=== PATIENT | male | born 2000 | race Caucasian/White ===

== ENCOUNTER 2024-09-22 04:41 | Observation (INO) ==
--- NOTE | 2024-09-22 05:20 | DR.BITE ---
HPI Time Seen Time Seen by Provider: 09/22/24 05:15 PCP Primary Care Physician: Jolene Mancia HPI Comment HPI Comment: History as below. Complaint/Symptoms Chief Complaint Doctor Comments: Patient is 24yr old female in ER with insect bite to left hand times 2 days. Patient tried to lace it at home and redness swelling got worse. Patient denies fever. Chief Complaint:: Pt states" a spider bit him on the left hand two days ago and he tried to lancet it at home and it became red and swollen. " Self Treatment fo Chief Complaint: IBU and Aspirin COVID-19 Coronavirus risk:travel/contact w/high risk person: No Has patient experienced Coronavirus symptoms: No Nurses notes reviewed Nurses Notes Review: Yes Source History Provided: Patient Mode of Arrival Mode of Arrival: Ambulatory Timing Onset of Chief Complaint: 09/20/24 PMH PMH Past Medical History: Yes Past Medical History Comment: ADD Past Surgical History: No Family History History of Family Medical Conditions: Yes Family Medical History: Diabetes Mellitus and Cancer Social History Type of Tobacco Use: Vape Alcohol Use: Occasionally Travel Risk Coronavirus risk:travel/contact w/high risk person: No Has patient experienced Coronavirus symptoms: No Infectious screening In the last 2 months have you had wt loss of >10#?: NO Have you had fever, night sweats or hemotysis?: No Have you traveled outside the country in the last 6 months?: No Isolation: Standard ROS Review of Systems Constitutional: No Symptoms Reported Eyes: No Symptoms Reported ENTM: No Symptoms Reported Respiratoy: No Symptoms Reported Cardiovascular: No Symptoms Reported Gastrointestinal/Abdominal: No Symptoms Reported Genitourinary: No Symptoms Reported Neurological: No Symptoms Reported Musculoskeletal: No Symptoms Reported Integumentary: No Symptoms Reported Hematologic/Lymphatic: No Symptoms Reported Endocrine: No Symptoms Reported Psychiatric: No Symptoms Reported All Other Systems: Reviewed and Negative PE Vital Signs Vital Signs: Temp Pulse Resp BP Pulse Ox 09/22/24 06:02 21 09/22/24 05:32 21 09/22/24 04:51 98.3 F 109 H 18 147/87 99 Constitutional Limitations: No Limitations General Appearance: Alert and In No Apparent Distress Head Head Exam: Normal Inspection Eyes Eye exam: Normal Appearance, PERRL and EOMI; negative Scleral Icterus or Conjunctival Injection ENT ENT Exam: Normal Exam, Normal Oropharynx, Normal External Ear Exam and TM's Normal Bilaterally Neck Neck Exam: Normal Inspection Chest Chest Inspection: Normal Inspection and Symmetric Chest Wall Rise Respiratory Respiratory Exam: Normal Lung Sounds Bilat; negative Accessory Muscle Use, Chest Wall Tenderness or Respiratory Distress Respiratory Exam: Bilateral: Clear to Auscultation Cardiovascular Cardiovascular Exam: Regular Rate, Normal Rhythm and Normal Heart Sounds; negative Systolic Murmur or Diastolic Murmur Abdominal Exam Abdominal Exam: Normal Inspection, Normal Bowel Sounds and Soft; negative Tenderness Extremities Extremities Exam: Edema ROR Labs Reviewed 09/22/24 05:34 09/22/24 05:34 Laboratory: WBC 13.2 X10^3/uL (3.6-10.0) H 09/22/24 05:34 RBC 5.61 X10^6/uL (4.7-6.0) 09/22/24 05:34 Hgb 16.2 g/dL (13.5-18.0) 09/22/24 05:34 Hct 47.6 % (42.0-54.0) 09/22/24 05:34 MCV 84.9 fL (80.0-100.0) 09/22/24 05:34 MCH 28.9 pg (27.0-34.0) 09/22/24 05:34 MCHC 34.0 g/dL (33.0-35.0) 09/22/24 05:34 RDW 12.8 % (11.6-16.5) 09/22/24 05:34 Plt Count 259 X10^3/uL (150.0-450.0) 09/22/24 05:34 MPV 8.5 fL (7.4-11.0) 09/22/24 05:34 Neut % (Auto) 73.4 % (42.0-75.0) 09/22/24 05:34 Lymph % (Auto) 17.7 % (21.0-51.0) L 09/22/24 05:34 [place] % (Auto) 7.6 % (0.0-13.0) 09/22/24 05:34 Eos % (Auto) 0.7 % (0.9-2.9) L 09/22/24 05:34 Baso % (Auto) 0.6 % (0.2-1.0) 09/22/24 05:34 Neut # (Auto) 9.7 x10^3/uL (2.2-4.8) H 09/22/24 05:34 Lymph # (Auto) 2.3 X10^3/uL (1.3-2.9) 09/22/24 05:34 [place] # (Auto) 1.0 x10^3/uL (0.3-0.8) H 09/22/24 05:34 Eos # (Auto) 0.1 x10^3/uL (0.0-0.2) 09/22/24 05:34 Baso # (Auto) 0.1 X10^3/uL (0.0-0.1) 09/22/24 05:34 Absolute Nucleated RBC 0.1 /100WBC 09/22/24 05:34 Sodium 140 mmol/L (136-145) 09/22/24 05:34 Corrected Sodium TNP 09/22/24 05:34 Potassium 3.5 mmol/L (3.5-5.1) 09/22/24 05:34 Chloride 104 mmol/L (98-107) 09/22/24 05:34 Carbon Dioxide 28.4 mmol/L (21-32) 09/22/24 05:34 BUN 10 mg/dL (7-18) 09/22/24 05:34 Creatinine 1.19 mg/dL (0.70-1.30) 09/22/24 05:34 Est GFR (MDRD) Af Amer > 60 (>60) 09/22/24 05:34 Est GFR (MDRD) Non-Af > 60 (>60) 09/22/24 05:34 Glucose 95 mg/dL (65-99) 09/22/24 05:34 Calcium 9.1 mg/dL (8.5-10.1) 09/22/24 05:34 Corrected Calcium TNP 09/22/24 05:34 Total Bilirubin 0.50 mg/dL (0.2-1.0) 09/22/24 05:34 AST 15 Units/L (15-37) 09/22/24 05:34 ALT 30 Units/L (12-78) 09/22/24 05:34 Alkaline Phosphatase 96 Units/L (46-116) 09/22/24 05:34 Total Protein 7.9 g/dL (6.4-8.2) 09/22/24 05:34 Albumin 3.9 g/dL (3.4-5.0) 09/22/24 05:34 Globulin 4.0 g/dL (2.5-4.5) 09/22/24 05:34 Albumin/Globulin Ratio 1.0 Ratio (1.1-2.1) L 09/22/24 05:34 Opioid Opioid Risk Tool Age (Tuan box if 16-45): Yes History of Preadolescent Sexual Abuse: No Total: 1 Total Score Risk Category: Low Risk Copyright: Rj HENSON predicting aberrant behaviors Discharge Plan Discharge Plan Patient Disposition: HOME, SELF-CARE Condition: Stable Prescriptions: No Action [facility] Concerns: Post Hospitalization: new medications and changes needed to prevent readmission or further decline. Pt educated and given instructions on all concerns. Plan of Treatment: Continue with present treatment and follow up plan. Pt is to keep follow up appointment as instructed and take medications as ordered. Orders to Discharge Patient Discharge Orders: Transfer (Routine); Ordered 09/22/24 Ordered By: CYNDEE BUTCHER Follow ups/Referrals Follow ups/Referrals: [facility],None [Primary Care Provider] - 3 days Instructions Stand Alone Forms: Post Hospital Follow Up Care
[2024-09-22] MEDS: TORADOL 60 MG VIAL IM ONE (05:32)
[2024-09-22 05:40] LABS: BASOPHILS # (AUTO) 0.1 X10^3/uL (0.0-0.1); BASOPHILS % (AUTO) 0.6 % (0.2-1.0); EOSINOPHILS # (AUTO) 0.1 x10^3/uL (0.0-0.2); EOSINOPHILS % (AUTO) 0.7 % (0.9-2.9); HEMATOCRIT 47.6 % (42.0-54.0); HEMOGLOBIN 16.2 g/dL (13.5-18.0); LYMPHOCYTES # (AUTO) 2.3 X10^3/uL (1.3-2.9); LYMPHOCYTES % (AUTO) 17.7 % (21.0-51.0); MEAN CORPUSCULAR HEMOGLOBIN 28.9 pg (27.0-34.0); MEAN CORPUSCULAR VOLUME 84.9 fL (80.0-100.0); MEAN PLATELET VOLUME 8.5 fL (7.4-11.0); MONOCYTES % (AUTO) 7.6 % (0.0-13.0); NEUTROPHILS # (AUTO) 9.7 x10^3/uL (2.2-4.8); NEUTROPHILS % (AUTO) 73.4 % (42.0-75.0); PLATELET COUNT 259 X10^3/uL (150.0-450.0); RED BLOOD COUNT 5.61 X10^6/uL (4.7-6.0); RED CELL DISTRIBUTION WIDTH 12.8 % (11.6-16.5); WHITE BLOOD COUNT 13.2 X10^3/uL (3.6-10.0)
[2024-09-22 05:55] LABS: ALANINE AMINOTRANSFERASE 30 Units/L (12-78); ALBUMIN 3.9 g/dL (3.4-5.0); ALKALINE PHOSPHATASE 96 Units/L (46-116); ASPARTATE AMINO TRANSFERASE 15 Units/L (15-37); BLOOD UREA NITROGEN 10 mg/dL (7-18); CALCIUM 9.1 mg/dL (8.5-10.1); CARBON DIOXIDE 28.4 mmol/L (21-32); CHLORIDE 104 mmol/L (98-107); CREATININE 1.19 mg/dL (0.70-1.30); GLUCOSE 95 mg/dL (65-99); POTASSIUM 3.5 mmol/L (3.5-5.1); SODIUM 140 mmol/L (136-145); TOTAL PROTEIN 7.9 g/dL (6.4-8.2); eGFR NON BLACK RACES > 60 (>60)
[2024-09-22] MEDS: VANCOMYCIN IV *PREMIX 1 G/200 ML BAG 1 G/200 ML PIGGYBACK IV ONE (07:08)
[2024-09-22] MEDS: NS 1,000 ML IV 1,000 ML IV SCH (07:08)
[2024-09-22] MEDS: TORADOL 60 MG VIAL ONE (09:24)
[2024-09-22 09:44] VITALS: BMI 26.5
[2024-09-22] MEDS: VANCOMYCIN IV *PREMIX 1 G/200 ML BAG 1 G/200 ML PIGGYBACK IV SCH (09:44)
--- NOTE | 2024-09-22 11:31 | DR.H&P ---
H&P History & Physical for Day of: H&P Date: 09/22/24 Chief Complaint Chief Complaint: right hand swelling, redness History of Present Illness History of Present Illness: Patient is a 24y/o male with no pertinent medical history presented with right hand pain, swelling and redness. He states he noticed a small pustule couple days ago which progressed with increased pain and swelling of the right hand. He tried to drain the pus but it got worse. He also noticed a similar wound on the left leg which he removed the pus and it seems to be healing. Denies any prior hx of skin infections. Denies any trauma or bite. ER work up showed elevated WBC. He was started on IV vancomycin, cultures were collected. Labs/imaging reviewed: -WBC 13.2 lactic acid 0.8 -Wound Cx pending -Blood Cx pending Plan: Will order CT of the right hand to assess further. Continue IV vancomycin, follow pending cultures. Continue wound care. Consult Dr Kulkarni. Replace electrolytes prn. Continue pain control. Monitor AM labs/imaging. Family History Family Medical History: Diabetes Mellitus Social History Does patient currently use any type of tobacco product: Yes Type of Tobacco Use: Vape How many years tobacco product used: 5 Alcohol Use: None Drug Use: None Medications Home Medications: Home Medications Medication Instructions Recorded Confirmed Type NK 09/22/24 09/22/24 History Allergies Allergies Allergy/AdvReac Type Severity Reaction Status Date / Time coconut Allergy Verified 09/22/24 05:32 Labs 09/22/24 05:34 09/22/24 05:34 Labs: 09/22/24 06:10 Hand - Left Wound Gram Stain - Final Laboratory WBC 13.2 X10^3/uL (3.6-10.0) H 09/22/24 05:34 RBC 5.61 X10^6/uL (4.7-6.0) 09/22/24 05:34 Hgb 16.2 g/dL (13.5-18.0) 09/22/24 05:34 Hct 47.6 % (42.0-54.0) 09/22/24 05:34 MCV 84.9 fL (80.0-100.0) 09/22/24 05:34 MCH 28.9 pg (27.0-34.0) 09/22/24 05:34 MCHC 34.0 g/dL (33.0-35.0) 09/22/24 05:34 RDW 12.8 % (11.6-16.5) 09/22/24 05:34 Plt Count 259 X10^3/uL (150.0-450.0) 09/22/24 05:34 MPV 8.5 fL (7.4-11.0) 09/22/24 05:34 Neut % (Auto) 73.4 % (42.0-75.0) 09/22/24 05:34 Lymph % (Auto) 17.7 % (21.0-51.0) L 09/22/24 05:34 [place] % (Auto) 7.6 % (0.0-13.0) 09/22/24 05:34 Eos % (Auto) 0.7 % (0.9-2.9) L 09/22/24 05:34 Baso % (Auto) 0.6 % (0.2-1.0) 09/22/24 05:34 Neut # (Auto) 9.7 x10^3/uL (2.2-4.8) H 09/22/24 05:34 Lymph # (Auto) 2.3 X10^3/uL (1.3-2.9) 09/22/24 05:34 [place] # (Auto) 1.0 x10^3/uL (0.3-0.8) H 09/22/24 05:34 Eos # (Auto) 0.1 x10^3/uL (0.0-0.2) 09/22/24 05:34 Baso # (Auto) 0.1 X10^3/uL (0.0-0.1) 09/22/24 05:34 Absolute Nucleated RBC 0.1 /100WBC 09/22/24 05:34 Sodium 140 mmol/L (136-145) 09/22/24 05:34 Corrected Sodium TNP 09/22/24 05:34 Potassium 3.5 mmol/L (3.5-5.1) 09/22/24 05:34 Chloride 104 mmol/L (98-107) 09/22/24 05:34 Carbon Dioxide 28.4 mmol/L (21-32) 09/22/24 05:34 BUN 10 mg/dL (7-18) 09/22/24 05:34 Creatinine 1.19 mg/dL (0.70-1.30) 09/22/24 05:34 Est GFR (MDRD) Af Amer > 60 (>60) 09/22/24 05:34 Est GFR (MDRD) Non-Af > 60 (>60) 09/22/24 05:34 Glucose 95 mg/dL (65-99) 09/22/24 05:34 Lactic Acid 0.8 mmol/L (0.4-2.0) 09/22/24 08:31 Calcium 9.1 mg/dL (8.5-10.1) 09/22/24 05:34 Corrected Calcium TNP 09/22/24 05:34 Total Bilirubin 0.50 mg/dL (0.2-1.0) 09/22/24 05:34 AST 15 Units/L (15-37) 09/22/24 05:34 ALT 30 Units/L (12-78) 09/22/24 05:34 Alkaline Phosphatase 96 Units/L (46-116) 09/22/24 05:34 Total Protein 7.9 g/dL (6.4-8.2) 09/22/24 05:34 Albumin 3.9 g/dL (3.4-5.0) 09/22/24 05:34 Globulin 4.0 g/dL (2.5-4.5) 09/22/24 05:34 Albumin/Globulin Ratio 1.0 Ratio (1.1-2.1) L 09/22/24 05:34 Review of Systems Constitutional: No Symptoms Reported Eyes: No Symptoms Reported ENT: No Symptoms Reported Respiratory: No Symptoms Reported Cardiovascular: No Symptoms Reported Gastrointestinal: No Symptoms Reported Genitourinary: No Symptoms Reported Musculoskeletal: Hand Pain Skin: Wound Neurological: No Symptoms Reported Physical Exam Vital Signs: Vital Signs Temperature 97.8 F Temperature 98.3 F Pulse Rate [Left Radial] 83 Pulse Rate 109 Respiratory Rate 19 Respiratory Rate 21 Respiratory Rate 21 Respiratory Rate 18 Blood Pressure [Right Arm] 150/91 Blood Pressure [Right Arm] 135/84 Blood Pressure 147/87 O2 Sat by Pulse Oximetry 100 O2 Sat by Pulse Oximetry 99 Oriented: Normal Eyes: Normal Throat: Normal Respiratory: Clear Throughout Cardiovascular: Normal Auscultation: Bowel Sounds: Normal Palpation: Normal Tenderness: Normal Skin: Tender and Wound Musculoskeletal: Right (hand: swollen, erythema, limited ROM, open wound with drainage ) and Knee (closed wound, slight erythema noted ) Psychiatric: Normal Mood Description: Calm Affect: Normal Speech Pattern: Clear and Appropriate Assessment/Plan (1) Cellulitis of hand: Status: Acute (2) Open wound: Status: Acute Review H&P Reviewed: Yes Patient was examined?: Yes
[2024-09-22] MEDS: TORADOL 30 MG VIAL IVP PRN (16:20)
--- NOTE | 2024-09-22 22:57 | RAD ---
EXAM:HAND, LEFTHISTORY:ABCESS/CELLULITIS pt states pain lateral aspect of hand, swelling x's 4 days; UnavailableCOMPARISON:NoneFINDINGS:No acute cortical disruption or dislocation is identified. There is marked soft tissue swelling of the dorsum of the hand and digits.. The carpal bones appear aligned without evidence for fracture.IMPRESSION:Marked soft tissue swelling dorsum of the hand and digits.No acute bony abnormalityTHIS IS AN ELECTRONICALLY VERIFIED FINAL [id number]/22/2024 10:54 PM - Electronically signed by Braeden Dubois MD
[2024-09-23 05:40] LABS: BASOPHILS # (AUTO) 0.1 X10^3/uL (0.0-0.1); BASOPHILS % (AUTO) 0.5 % (0.2-1.0); EOSINOPHILS # (AUTO) 0.2 x10^3/uL (0.0-0.2); EOSINOPHILS % (AUTO) 2.2 % (0.9-2.9); HEMATOCRIT 40.7 % (42.0-54.0); HEMOGLOBIN 13.5 g/dL (13.5-18.0); LYMPHOCYTES # (AUTO) 2.1 X10^3/uL (1.3-2.9); LYMPHOCYTES % (AUTO) 18.7 % (21.0-51.0); MEAN CORPUSCULAR HEMOGLOBIN 28.3 pg (27.0-34.0); MEAN CORPUSCULAR HGB CONC 33.3 g/dL (33.0-35.0); MEAN CORPUSCULAR VOLUME 85.1 fL (80.0-100.0); MEAN PLATELET VOLUME 8.7 fL (7.4-11.0); MONOCYTES % (AUTO) 8.8 % (0.0-13.0); NEUTROPHILS # (AUTO) 7.8 x10^3/uL (2.2-4.8); NEUTROPHILS % (AUTO) 69.8 % (42.0-75.0); PLATELET COUNT 211 X10^3/uL (150.0-450.0); RED BLOOD COUNT 4.78 X10^6/uL (4.7-6.0); RED CELL DISTRIBUTION WIDTH 12.6 % (11.6-16.5); WHITE BLOOD COUNT 11.2 X10^3/uL (3.6-10.0)
[2024-09-23 05:44] LABS: BLOOD UREA NITROGEN 8 mg/dL (7-18); CALCIUM 8.4 mg/dL (8.5-10.1); CHLORIDE 107 mmol/L (98-107); CREATININE 0.92 mg/dL (0.70-1.30); GLUCOSE 100 mg/dL (65-99); POTASSIUM 4.2 mmol/L (3.5-5.1); SODIUM 141 mmol/L (136-145); eGFR NON BLACK RACES > 60 (>60)
[2024-09-23] MEDS: PHARMACY COMMENT IV ONE (06:03)
[2024-09-23 06:23] LABS: ALANINE AMINOTRANSFERASE 19 Units/L (12-78); ALBUMIN 2.7 g/dL (3.4-5.0); ALKALINE PHOSPHATASE 86 Units/L (46-116); ASPARTATE AMINO TRANSFERASE 12 Units/L (15-37); COR CA(FOR HYPOALB) 9.4 mg/dL (8.5-10.1); MAGNESIUM 1.5 mg/dL (2.0-2.9)
[2024-09-23 06:38] LABS: VANCOMYCIN,TROUGH 12.8 ug/mL (15-20)
[2024-09-23] MEDS ORDERED: CONSULT PHARMACY - POTASSIUM & MAGNESIUM XX SCH ×2 (07:00→11:00)
[2024-09-23] MEDS: MAG-OX TAB PO SCH ×2 (08:25→12:18)
--- NOTE | 2024-09-23 10:05 | PCM.PROG ---
Progress Note Progress Note for Day of Date of Exam: 09/23/24 Subjective Subjective: Patient seen at bedside, no acute events overnight. He is feeling better. His right hand pain and swelling has improved. XR showed soft tissue swelling. CT is pending. Dr Kulkarni also saw the patient. He has been afebrile. He is currently on IV Vancomycin. Labs/imaging reviewed: -WBC 11.2 Hgb 13.5 K 4.2 Mag 1.5 -Wound culture pending -XR: soft tissue swelling Plan: follow surgery recommendations and wound care, follow pending culture. Continue IV vancomycin. CT right hand pending. Continue pain control. Replace electrolytes as per protocol. Monitor AM labs/imaging. Past Medical Family Social History Allergies: Allergies coconut Allergy (Verified 09/22/24 05:32) Vital Signs and I&O's Vital Signs: Vital Signs Temperature 98.4 F Temperature 98.3 F Pulse Rate [Left Radial] 89 Pulse Rate [Left Radial] 94 Respiratory Rate 18 Respiratory Rate 21 Blood Pressure [Right Arm] 132/74 Blood Pressure [Right Arm] 118/54 O2 Sat by Pulse Oximetry 99 O2 Sat by Pulse Oximetry 100 Intake and Output: Intake & Output 09/21/24 09/22/24 09/22/24 09/23/24 00:59 00:59 23:59 23:59 Intake Total 1150 / 1150 Balance 1150 / 1150 Physical Exam Oriented: Normal Eyes: Normal Throat: Normal Respiratory: Normal Cardiovascular: Normal Auscultation: Bowel Sounds: Normal Palpation: Normal Tenderness: Normal Skin: Tender and Wound Musculoskeletal: Right (hand: swollen, erythema, limited ROM, open wound with drainage ) and Knee (closed wound, slight erythema noted ) Psychiatric: Normal Mood Description: Calm Affect: Normal Speech Pattern: Clear Laboratory and Diagnostics 09/23/24 05:20 09/23/24 05:20 Labs: 09/22/24 06:10 Hand - Left Wound Gram Stain - Final Laboratory WBC 11.2 X10^3/uL (3.6-10.0) H 09/23/24 05:20 RBC 4.78 X10^6/uL (4.7-6.0) 09/23/24 05:20 Hgb 13.5 g/dL (13.5-18.0) D 09/23/24 05:20 Hct 40.7 % (42.0-54.0) L 09/23/24 05:20 MCV 85.1 fL (80.0-100.0) 09/23/24 05:20 MCH 28.3 pg (27.0-34.0) 09/23/24 05:20 MCHC 33.3 g/dL (33.0-35.0) 09/23/24 05:20 RDW 12.6 % (11.6-16.5) 09/23/24 05:20 Plt Count 211 X10^3/uL (150.0-450.0) 09/23/24 05:20 MPV 8.7 fL (7.4-11.0) 09/23/24 05:20 Neut % (Auto) 69.8 % (42.0-75.0) 09/23/24 05:20 Lymph % (Auto) 18.7 % (21.0-51.0) L 09/23/24 05:20 [place] % (Auto) 8.8 % (0.0-13.0) 09/23/24 05:20 Eos % (Auto) 2.2 % (0.9-2.9) 09/23/24 05:20 Baso % (Auto) 0.5 % (0.2-1.0) 09/23/24 05:20 Neut # (Auto) 7.8 x10^3/uL (2.2-4.8) H 09/23/24 05:20 Lymph # (Auto) 2.1 X10^3/uL (1.3-2.9) 09/23/24 05:20 [place] # (Auto) 1.0 x10^3/uL (0.3-0.8) H 09/23/24 05:20 Eos # (Auto) 0.2 x10^3/uL (0.0-0.2) 09/23/24 05:20 Baso # (Auto) 0.1 X10^3/uL (0.0-0.1) 09/23/24 05:20 Absolute Nucleated RBC 0.0 /100WBC 09/23/24 05:20 Sodium 141 mmol/L (136-145) 09/23/24 05:20 Corrected Sodium TNP 09/23/24 05:20 Potassium 4.2 mmol/L (3.5-5.1) 09/23/24 05:20 Chloride 107 mmol/L (98-107) 09/23/24 05:20 Carbon Dioxide 25.0 mmol/L (21-32) 09/23/24 05:20 BUN 8 mg/dL (7-18) 09/23/24 05:20 Creatinine 0.92 mg/dL (0.70-1.30) 09/23/24 05:20 Est GFR (MDRD) Af Amer > 60 (>60) 09/23/24 05:20 Est GFR (MDRD) Non-Af > 60 (>60) 09/23/24 05:20 Glucose 100 mg/dL (65-99) H 09/23/24 05:20 Lactic Acid 0.8 mmol/L (0.4-2.0) 09/22/24 08:31 Calcium 8.4 mg/dL (8.5-10.1) L 09/23/24 05:20 Corrected Calcium 9.4 mg/dL (8.5-10.1) 09/23/24 05:20 Magnesium 1.5 mg/dL (2.0-2.9) L 09/23/24 05:20 Total Bilirubin 0.50 mg/dL (0.2-1.0) 09/23/24 05:20 AST 12 Units/L (15-37) L 09/23/24 05:20 ALT 19 Units/L (12-78) 09/23/24 05:20 Alkaline Phosphatase 86 Units/L (46-116) 09/23/24 05:20 Total Protein 6.0 g/dL (6.4-8.2) L 09/23/24 05:20 Albumin 2.7 g/dL (3.4-5.0) L 09/23/24 05:20 Globulin 3.3 g/dL (2.5-4.5) 09/23/24 05:20 Albumin/Globulin Ratio 0.8 Ratio (1.1-2.1) L 09/23/24 05:20 Vancomycin Trough 12.8 ug/mL (15-20) L 09/23/24 05:20 Plan (1) Cellulitis of hand: Status: Acute (2) Open wound: Status: Acute (3) Hypomagnesemia: Status: Acute
[2024-09-23] MEDS: BACTROBAN TOPICAL OINT TOP ONE ×2 (10:14→21:01)
[2024-09-23] MEDS: HYDROGEN PEROXIDE 3% EXT ONE ×2 (10:14→21:02)
--- NOTE | 2024-09-23 13:48 | CT ---
EXAM:UPPER EXT W/O CONHISTORY:CELLULITIS, LEFT HAND ABCESS;COMPARISON:09/22/2024 radiographsTECHNIQUE:Multiple CT axial images of the left hand were obtained without administration of IV contrast. Sagittal and coronal reformats were performed and reviewed. Dose reduction techniques including Automated Exposure Control (AEC) and adjustment of mA and kV were utilized.FINDINGS:Diffuse hand subcutaneous edema primarily at the dorsum of the hand. On this noncontrast study, there is no definable collection with most notable areas of edema possibly phlegmonous changes at the dorsal medial aspect of the hand corresponding to the level of the 5th metacarpal shaft. No subcutaneous gas. No osseous destruction identified. No evidence for foreign body. Tiny presumed degenerative cyst at the lateral margin of the triquetrum. Is mild narrowing of the space between the lunate and the triquetrum at this level as well. Slight ulnar negative variance suggested.IMPRESSION:Diffuse hand subcutaneous tissue soft tissue swelling/cellulitis most notable adjacent to the 5th metacarpal. No definable collection on this limited noncontrast study. No osseous destruction to suggest osteomyelitis. No subcutaneous gas. No foreign body identified.THIS IS AN ELECTRONICALLY VERIFIED FINAL [id number]/23/2024 1:44 PM - Electronically signed by Edwin Us MD
[2024-09-24 06:23] LABS: BASOPHILS % (AUTO) 0.5 % (0.2-1.0); EOSINOPHILS # (AUTO) 0.2 x10^3/uL (0.0-0.2); EOSINOPHILS % (AUTO) 2.4 % (0.9-2.9); HEMATOCRIT 40.9 % (42.0-54.0); HEMOGLOBIN 13.7 g/dL (13.5-18.0); LYMPHOCYTES # (AUTO) 2.1 X10^3/uL (1.3-2.9); LYMPHOCYTES % (AUTO) 23.7 % (21.0-51.0); MEAN CORPUSCULAR HEMOGLOBIN 28.5 pg (27.0-34.0); MEAN CORPUSCULAR HGB CONC 33.4 g/dL (33.0-35.0); MEAN CORPUSCULAR VOLUME 85.4 fL (80.0-100.0); MEAN PLATELET VOLUME 9.2 fL (7.4-11.0); MONOCYTES # (AUTO) 0.7 x10^3/uL (0.3-0.8); MONOCYTES % (AUTO) 8.2 % (0.0-13.0); NEUTROPHILS # (AUTO) 5.7 x10^3/uL (2.2-4.8); NEUTROPHILS % (AUTO) 65.2 % (42.0-75.0); PLATELET COUNT 214 X10^3/uL (150.0-450.0); RED BLOOD COUNT 4.79 X10^6/uL (4.7-6.0); RED CELL DISTRIBUTION WIDTH 12.5 % (11.6-16.5); WHITE BLOOD COUNT 8.8 X10^3/uL (3.6-10.0)
[2024-09-24 06:34] LABS: BLOOD UREA NITROGEN 8 mg/dL (7-18); CALCIUM 8.7 mg/dL (8.5-10.1); CARBON DIOXIDE 26.7 mmol/L (21-32); CHLORIDE 107 mmol/L (98-107); CREATININE 0.84 mg/dL (0.70-1.30); GLUCOSE 96 mg/dL (65-99); POTASSIUM 4.4 mmol/L (3.5-5.1); SODIUM 141 mmol/L (136-145); eGFR NON BLACK RACES > 60 (>60)
[2024-09-24 06:55] LABS: ALANINE AMINOTRANSFERASE 21 Units/L (12-78); ALBUMIN 2.8 g/dL (3.4-5.0); ALKALINE PHOSPHATASE 88 Units/L (46-116); ASPARTATE AMINO TRANSFERASE 14 Units/L (15-37); COR CA(FOR HYPOALB) 9.7 mg/dL (8.5-10.1); MAGNESIUM 1.7 mg/dL (2.0-2.9); TOTAL PROTEIN 6.4 g/dL (6.4-8.2)
[2024-09-24] MEDS ORDERED: CONSULT PHARMACY - POTASSIUM & MAGNESIUM XX SCH (08:00)
[2024-09-24] MEDS: NS 1,000 ML IV 1,000 ML with MAGNESIUM SULFATE 50% INJ VIAL 1 G IV SCH (08:46)
--- NOTE | 2024-09-24 08:55 | DR.PROGNOT ---
HOSPITAL PROGRESS NOTE Progress Note for Day of: Progress Note Date: 09/24/24 Chief Complaint Chief Complaint: Still having the purulent drainage from the dorsal aspect of the left hand. Patient is complaining of pain but the cellulitis had improved. Wound culture showed MRSA Past Medical Family Social History Past Med/Fam/Surg Hx: No changes since H&P Allergies: Allergies coconut Allergy (Verified 09/22/24 05:32) Vital Signs Vital Signs: Vital Signs Temperature 98.2 F Pulse Rate [Left Radial] 72 Respiratory Rate 18 Blood Pressure [Right Arm] 140/68 O2 Sat by Pulse Oximetry 98 Physical Exam Oriented: Normal Eyes: Normal Throat: Normal Respiratory: Normal Cardiovascular: Normal GI:Auscultation: Normal GI:Palpation: Normal GI: Tenderness: Normal Skin: Tender and Wound Musculoskeletal: Right (hand: swollen, erythema, limited ROM, open wound with drainage ) and Knee (closed wound, slight erythema noted ) Psychiatric: Normal Mood Description: Calm Affect: Normal Speech Pattern: Clear Laboratory and Diagnostics 09/24/24 05:29 09/24/24 05:29 Labs: 09/22/24 06:10 Hand - Left Wound Gram Stain - Final 09/22/24 06:10 Hand - Left Wound Culture - Preliminary Methicillin Resis Staph Aureus 09/22/24 08:31 Blood Blood Culture - Preliminary 09/22/24 08:25 Blood Blood Culture - Preliminary Laboratory WBC 8.8 X10^3/uL (3.6-10.0) 09/24/24 05:29 RBC 4.79 X10^6/uL (4.7-6.0) 09/24/24 05:29 Hgb 13.7 g/dL (13.5-18.0) 09/24/24 05:29 Hct 40.9 % (42.0-54.0) L 09/24/24 05:29 MCV 85.4 fL (80.0-100.0) 09/24/24 05:29 MCH 28.5 pg (27.0-34.0) 09/24/24 05: MCHC 33.4 g/dL (33.0-35.0) 09/24/24 05:29 RDW 12.5 % (11.6-16.5) 09/24/24 05:29 Plt Count 214 X10^3/uL (150.0-450.0) 09/24/24 05:29 MPV 9.2 fL (7.4-11.0) 09/24/24 05:29 Neut % (Auto) 65.2 % (42.0-75.0) 09/24/24 05:29 Lymph % (Auto) 23.7 % (21.0-51.0) 09/24/24 05:29 [place] % (Auto) 8.2 % (0.0-13.0) 09/24/24 05:29 Eos % (Auto) 2.4 % (0.9-2.9) 09/24/24 05:29 Baso % (Auto) 0.5 % (0.2-1.0) 09/24/24 05:29 Neut # (Auto) 5.7 x10^3/uL (2.2-4.8) H 09/24/24 05:29 Lymph # (Auto) 2.1 X10^3/uL (1.3-2.9) 09/24/24 05:29 [place] # (Auto) 0.7 x10^3/uL (0.3-0.8) 09/24/24 05:29 Eos # (Auto) 0.2 x10^3/uL (0.0-0.2) 09/24/24 05:29 Baso # (Auto) 0.0 X10^3/uL (0.0-0.1) 09/24/24 05:29 Absolute Nucleated RBC 0.1 /100WBC 09/24/24 05:29 Sodium 141 mmol/L (136-145) 09/24/24 05:29 Corrected Sodium TNP 09/24/24 05:29 Potassium 4.4 mmol/L (3.5-5.1) 09/24/24 05:29 Chloride 107 mmol/L (98-107) 09/24/24 05:29 Carbon Dioxide 26.7 mmol/L (21-32) 09/24/24 05:29 BUN 8 mg/dL (7-18) 09/24/24 05:29 Creatinine 0.84 mg/dL (0.70-1.30) 09/24/24 05:29 Est GFR (MDRD) Af Amer > 60 (>60) 09/24/24 05:29 Est GFR (MDRD) Non-Af > 60 (>60) 09/24/24 05:29 Glucose 96 mg/dL (65-99) 09/24/24 05:29 Lactic Acid 0.8 mmol/L (0.4-2.0) 09/22/24 08:31 Calcium 8.7 mg/dL (8.5-10.1) 09/24/24 05:29 Corrected Calcium 9.7 mg/dL (8.5-10.1) 09/24/24 05:29 Magnesium 1.7 mg/dL (2.0-2.9) L 09/24/24 05:29 Total Bilirubin 0.30 mg/dL (0.2-1.0) 09/24/24 05:29 AST 14 Units/L (15-37) L 09/24/24 05:29 ALT 21 Units/L (12-78) 09/24/24 05:29 Alkaline Phosphatase 88 Units/L (46-116) 09/24/24 05:29 Total Protein 6.4 g/dL (6.4-8.2) 09/24/24 05:29 Albumin 2.8 g/dL (3.4-5.0) L 09/24/24 05:29 Globulin 3.6 g/dL (2.5-4.5) 09/24/24 05:29 Albumin/Globulin Ratio 0.8 Ratio (1.1-2.1) L 09/24/24 05:29 Vancomycin Trough 12.8 ug/mL (15-20) L 09/23/24 05:20 Assessment and Plan 1: Skin abscess with cellulitis left hand positive for MRSA. Same local care with soaking with peroxide and saline and keep the left hand elevated in a sling. Same IV antibiotics pending final culture report.
--- NOTE | 2024-09-24 10:12 | PCM.PROG ---
Progress Note Progress Note for Day of Date of Exam: 09/24/24 Subjective Subjective: Patient seen at bedside, no acute events overnight. He is feeling better, left hand appears to be less swollen and red. His left hand CT showed soft tissue swelling, no obvious fluid collection. Wound Cx grew MRSA. He remains on IV Vancomycin. Dr Kulkarni is also following. Labs/imaging reviewed: -WBC 8.8 Hgb 13.7 K 4.2 Mag 1.7 -Wound culture: MRSA -CT: soft tissue swelling Plan: follow surgery recommendations and wound care, keep hand open and allow drainage as possible. Continue IV vancomycin. Continue pain control. Replace electrolytes as per protocol. Monitor AM labs/imaging. Past Medical Family Social History Past Med/Fam/Surg Hx: No changes since H&P Allergies: Allergies coconut Allergy (Verified 09/22/24 05:32) Vital Signs and I&O's Vital Signs: Vital Signs Temperature 98.2 F Pulse Rate [Left Radial] 72 Respiratory Rate 18 Blood Pressure [Right Arm] 140/68 O2 Sat by Pulse Oximetry 98 Intake and Output: Intake & Output 09/22/24 09/22/24 09/23/24 09/24/24 00:59 23:59 23:59 23:59 Intake Total 365 / 3659 1100 / 1100 Balance 365 / 365 1100 / 1100 Physical Exam Oriented: Normal Eyes: Normal Throat: Normal Respiratory: Normal Cardiovascular: Normal Auscultation: Bowel Sounds: Normal Palpation: Normal Tenderness: Normal Skin: Tender and Wound Musculoskeletal: Left (hand: swollen, erythema, limited ROM, open wound with drainage ) and Knee (closed wound, slight erythema noted ) Psychiatric: Normal Mood Description: Calm Affect: Normal Speech Pattern: Clear Laboratory and Diagnostics 09/24/24 05:29 09/24/24 05:29 Labs: 09/22/24 06:10 Hand - Left Wound Gram Stain - Final 09/22/24 06:10 Hand - Left Wound Culture - Preliminary Methicillin Resis Staph Aureus 09/22/24 08:31 Blood Blood Culture - Preliminary 09/22/24 08:25 Blood Blood Culture - Preliminary Laboratory WBC 8.8 X10^3/uL (3.6-10.0) 09/24/24 05:29 RBC 4.79 X10^6/uL (4.7-6.0) 09/24/24 05:29 Hgb 13.7 g/dL (13.5-18.0) 09/24/24 05:29 Hct 40.9 % (42.0-54.0) L 09/24/24 05:29 MCV 85.4 fL (80.0-100.0) 09/24/24 05:29 MCH 28.5 pg (27.0-34.0) 09/24/24 05:29 MCHC 33.4 g/dL (33.0-35.0) 09/24/24 05:29 RDW 12.5 % (11.6-16.5) 09/24/24 05:29 Plt Count 214 X10^3/uL (150.0-450.0) 09/24/24 05:29 MPV 9.2 fL (7.4-11.0) 09/24/24 05:29 Neut % (Auto) 65.2 % (42.0-75.0) 09/24/24 05:29 Lymph % (Auto) 23.7 % (21.0-51.0) 09/24/24 05:29 [place] % (Auto) 8.2 % (0.0-13.0) 09/24/24 05:29 Eos % (Auto) 2.4 % (0.9-2.9) 09/24/24 05:29 Baso % (Auto) 0.5 % (0.2-1.0) 09/24/24 05:29 Neut # (Auto) 5.7 x10^3/uL (2.2-4.8) H 09/24/24 05:29 Lymph # (Auto) 2.1 X10^3/uL (1.3-2.9) 09/24/24 05:29 [place] # (Auto) 0.7 x10^3/uL (0.3-0.8) 09/24/24 05:29 Eos # (Auto) 0.2 x10^3/uL (0.0-0.2) 09/24/24 05:29 Baso # (Auto) 0.0 X10^3/uL (0.0-0.1) 09/24/24 05:29 Absolute Nucleated RBC 0.1 /100WBC 09/24/24 05:29 Sodium 141 mmol/L (136-145) 09/24/24 05:29 Corrected Sodium TNP 09/24/24 05:29 Potassium 4.4 mmol/L (3.5-5.1) 09/24/24 05:29 Chloride 107 mmol/L (98-107) 09/24/24 05:29 Carbon Dioxide 26.7 mmol/L (21-32) 09/24/24 05:29 BUN 8 mg/dL (7-18) 09/24/24 05:29 Creatinine 0.84 mg/dL (0.70-1.30) 09/24/24 05:29 Est GFR (MDRD) Af Amer > 60 (>60) 09/24/24 05:29 Est GFR (MDRD) Non-Af > 60 (>60) 09/24/24 05:29 Glucose 96 mg/dL (65-99) 09/24/24 05:29 Lactic Acid 0.8 mmol/L (0.4-2.0) 09/22/24 08:31 Calcium 8.7 mg/dL (8.5-10.1) 09/24/24 05:29 Corrected Calcium 9.7 mg/dL (8.5-10.1) 09/24/24 05:29 Magnesium 1.7 mg/dL (2.0-2.9) L 09/24/24 05:29 Total Bilirubin 0.30 mg/dL (0.2-1.0) 09/24/24 05:29 AST 14 Units/L (15-37) L 09/24/24 05:29 ALT 21 Units/L (12-78) 09/24/24 05:29 Alkaline Phosphatase 88 Units/L (46-116) 09/24/24 05:29 Total Protein 6.4 g/dL (6.4-8.2) 09/24/24 05:29 Albumin 2.8 g/dL (3.4-5.0) L 09/24/24 05:29 Globulin 3.6 g/dL (2.5-4.5) 09/24/24 05:29 Albumin/Globulin Ratio 0.8 Ratio (1.1-2.1) L 09/24/24 05:29 Vancomycin Trough 12.8 ug/mL (15-20) L 09/23/24 05:20 Plan (1) Infection of skin due to methicillin resistant Staphylococcus aureus (MRSA): Status: Acute (2) Cellulitis of hand: Status: Acute (3) Open wound: Status: Acute (4) Hypomagnesemia: Status: Acute
[2024-09-24] MEDS: MILK OF MAGNESIA PO SCH (21:01)
[2024-09-24] MEDS: COLACE CAP 100 MG PO SCH (21:01)
[2024-09-25] MEDS: PHARMACY COMMENT IV ONE (05:45)
[2024-09-25 06:12] LABS: BASOPHILS # (AUTO) 0.1 X10^3/uL (0.0-0.1); EOSINOPHILS # (AUTO) 0.2 x10^3/uL (0.0-0.2); EOSINOPHILS % (AUTO) 3.1 % (0.9-2.9); HEMATOCRIT 40.7 % (42.0-54.0); HEMOGLOBIN 13.8 g/dL (13.5-18.0); LYMPHOCYTES # (AUTO) 2.3 X10^3/uL (1.3-2.9); LYMPHOCYTES % (AUTO) 30.1 % (21.0-51.0); MEAN CORPUSCULAR HEMOGLOBIN 28.8 pg (27.0-34.0); MEAN CORPUSCULAR HGB CONC 33.8 g/dL (33.0-35.0); MEAN CORPUSCULAR VOLUME 85.2 fL (80.0-100.0); MONOCYTES # (AUTO) 0.6 x10^3/uL (0.3-0.8); MONOCYTES % (AUTO) 8.5 % (0.0-13.0); NEUTROPHILS # (AUTO) 4.3 x10^3/uL (2.2-4.8); NEUTROPHILS % (AUTO) 57.3 % (42.0-75.0); PLATELET COUNT 231 X10^3/uL (150.0-450.0); RED BLOOD COUNT 4.78 X10^6/uL (4.7-6.0); RED CELL DISTRIBUTION WIDTH 12.4 % (11.6-16.5); WHITE BLOOD COUNT 7.5 X10^3/uL (3.6-10.0)
[2024-09-25 06:18] LABS: VANCOMYCIN,TROUGH 14.6 ug/mL (15-20)
[2024-09-25 06:22] LABS: ALANINE AMINOTRANSFERASE 24 Units/L (12-78); ALBUMIN 2.8 g/dL (3.4-5.0); ALKALINE PHOSPHATASE 85 Units/L (46-116); ASPARTATE AMINO TRANSFERASE 14 Units/L (15-37); BLOOD UREA NITROGEN 7 mg/dL (7-18); CALCIUM 8.6 mg/dL (8.5-10.1); CARBON DIOXIDE 27.8 mmol/L (21-32); CHLORIDE 107 mmol/L (98-107); COR CA(FOR HYPOALB) 9.6 mg/dL (8.5-10.1); CREATININE 0.87 mg/dL (0.70-1.30); GLUCOSE 88 mg/dL (65-99); POTASSIUM 4.2 mmol/L (3.5-5.1); SODIUM 142 mmol/L (136-145); TOTAL PROTEIN 6.4 g/dL (6.4-8.2); eGFR NON BLACK RACES > 60 (>60)
--- NOTE | 2024-09-25 10:30 | PCM.PROG ---
Progress Note Progress Note for Day of Date of Exam: 09/25/24 Subjective Subjective: Patient seen at bedside, no acute events overnight. His left hand swelling is better, still draining a lot. Dr Kulkarni will be taking the patient for I&D today. He is currently NPO. Labs/imaging reviewed: -WBC 7.5 Hgb 13.78 K 4.2 -Wound culture: MRSA -CT: soft tissue swelling Plan: follow surgery recommendations and wound care, keep hand open. Plan for I& D today. Continue IV vancomycin. Continue pain control. Replace electrolytes as per protocol. Monitor AM labs/imaging. Past Medical Family Social History Past Med/Fam/Surg Hx: No changes since H&P Allergies: Allergies coconut Allergy (Verified 09/22/24 05:32) Vital Signs and I&O's Vital Signs: Vital Signs Temperature 97.9 F Pulse Rate [Left Radial] 86 Respiratory Rate 18 Blood Pressure [Right Arm] 118/61 O2 Sat by Pulse Oximetry 100 Intake and Output: Intake & Output 09/22/24 09/23/24 09/24/24 09/25/24 23:59 23:59 23:59 23:59 Intake Total 3659 / 3659 4007 / 4007 1015 / 1015 Balance 3659 / 3659 4007 / 4007 1015 / 1015 Physical Exam Oriented: Normal Eyes: Normal Throat: Normal Respiratory: Normal Cardiovascular: Normal Auscultation: Bowel Sounds: Normal Palpation: Normal Tenderness: Normal Skin: Tender and Wound Musculoskeletal: Left (hand:swelling and redness improved, limited ROM, open wound with drainage ) and Knee (closed wound, slight erythema noted ) Psychiatric: Normal Mood Description: Calm Affect: Normal Speech Pattern: Clear Laboratory and Diagnostics 09/25/24 05:18 09/25/24 05:18 Labs: 09/22/24 06:10 Hand - Left Wound Gram Stain - Final 09/22/24 06:10 Hand - Left Wound Culture - Final Methicillin Resis Staph Aureus 09/22/24 08:31 Blood Blood Culture - Preliminary 09/22/24 08:25 Blood Blood Culture - Preliminary Laboratory WBC 7.5 X10^3/uL (3.6-10.0) 09/25/24 05:18 RBC 4.78 X10^6/uL (4.7-6.0) 09/25/24 05:18 Hgb 13.8 g/dL (13.5-18.0) 09/25/24 05:18 Hct 40.7 % (42.0-54.0) L 09/25/24 05:18 MCV 85.2 fL (80.0-100.0) 09/25/24 05:18 MCH 28.8 pg (27.0-34.0) 09/25/24 05:18 MCHC 33.8 g/dL (33.0-35.0) 09/25/24 05:18 RDW 12.4 % (11.6-16.5) 09/25/24 05:18 Plt Count 231 X10^3/uL (150.0-450.0) 09/25/24 05:18 MPV 9.0 fL (7.4-11.0) 09/25/24 05:18 Neut % (Auto) 57.3 % (42.0-75.0) 09/25/24 05:18 Lymph % (Auto) 30.1 % (21.0-51.0) 09/25/24 05:18 [place] % (Auto) 8.5 % (0.0-13.0) 09/25/24 05:18 Eos % (Auto) 3.1 % (0.9-2.9) H 09/25/24 05:18 Baso % (Auto) 1.0 % (0.2-1.0) 09/25/24 05:18 Neut # (Auto) 4.3 x10^3/uL (2.2-4.8) 09/25/24 05:18 Lymph # (Auto) 2.3 X10^3/uL (1.3-2.9) 09/25/24 05:18 [place] # (Auto) 0.6 x10^3/uL (0.3-0.8) 09/25/24 05:18 Eos # (Auto) 0.2 x10^3/uL (0.0-0.2) 09/25/24 05:18 Baso # (Auto) 0.1 X10^3/uL (0.0-0.1) 09/25/24 05:18 Absolute Nucleated RBC 0.1 /100WBC 09/25/24 05:18 Sodium 142 mmol/L (136-145) 09/25/24 05:18 Corrected Sodium TNP 09/25/24 05:18 Potassium 4.2 mmol/L (3.5-5.1) 09/25/24 05:18 Chloride 107 mmol/L (98-107) 09/25/24 05:18 Carbon Dioxide 27.8 mmol/L (21-32) 09/25/24 05:18 BUN 7 mg/dL (7-18) 09/25/24 05:18 Creatinine 0.87 mg/dL (0.70-1.30) 09/25/24 05:18 Est GFR (MDRD) Af Amer > 60 (>60) 09/25/24 05:18 Est GFR (MDRD) Non-Af > 60 (>60) 09/25/24 05:18 Glucose 88 mg/dL (65-99) 09/25/24 05:18 Lactic Acid 0.8 mmol/L (0.4-2.0) 09/22/24 08:31 Calcium 8.6 mg/dL (8.5-10.1) 09/25/24 05:18 Corrected Calcium 9.6 mg/dL (8.5-10.1) 09/25/24 05:18 Magnesium 2.0 mg/dL (2.0-2.9) 09/25/24 05:18 Total Bilirubin 0.30 mg/dL (0.2-1.0) 09/25/24 05:18 AST 14 Units/L (15-37) L 09/25/24 05:18 ALT 24 Units/L (12-78) 09/25/24 05:18 Alkaline Phosphatase 85 Units/L (46-116) 09/25/24 05:18 Total Protein 6.4 g/dL (6.4-8.2) 09/25/24 05:18 Albumin 2.8 g/dL (3.4-5.0) L 09/25/24 05:18 Globulin 3.6 g/dL (2.5-4.5) 09/25/24 05:18 Albumin/Globulin Ratio 0.8 Ratio (1.1-2.1) L 09/25/24 05:18 Vancomycin Trough 14.6 ug/mL (15-20) L 09/25/24 05:18 Plan (1) Infection of skin due to methicillin resistant Staphylococcus aureus (MRSA): Status: Acute (2) Cellulitis of hand: Status: Acute (3) Open wound: Status: Acute (4) Hypomagnesemia: Status: Acute
[2024-09-25] MEDS ORDERED: VERSED ONE (11:20)
[2024-09-25] MEDS ORDERED: FENTANYL VIAL INJ 100 mcg ONE (11:20)
[2024-09-25] MEDS ORDERED: DIPRIVAN VIAL 20 ML ONE (11:21)
[2024-09-25] MEDS ORDERED: PRECEDEX INJ VIAL ONE (11:21)
[2024-09-25] MEDS ORDERED: ZOFRAN INJ 4 MG VIAL ONE (11:23)
[2024-09-25] MEDS ORDERED: PEPCID 20 MG VIAL ONE (11:23)
[2024-09-25] MEDS: ANCEF VIAL 1 GRAM ONE (11:30)
[2024-09-25] MEDS: LR 1,000 ML IV 1,000 ML IV ONE (11:30)
[2024-09-25] MEDS: NS 100 ML IV 100 ML ONE (11:30)
[2024-09-25] MEDS ORDERED: XYLOCAINE 2 % (PLAIN) ONE (11:38)
[2024-09-25] MEDS ORDERED: KETAMINE HCL ONE (11:38)
[2024-09-25] MEDS: BETADINE SOLN ONE (11:45)
[2024-09-25] MEDS: XYLOCAINE 1 % (PLAIN) ONE (11:53)
[2024-09-25] MEDS: POLYMYXIN B SULFATE ONE (11:53)
[2024-09-25 22:09] VITALS: O2SAT 98
[2024-09-26 05:48] LABS: BASOPHILS # (AUTO) 0.1 X10^3/uL (0.0-0.1); BASOPHILS % (AUTO) 1.4 % (0.2-1.0); EOSINOPHILS # (AUTO) 0.2 x10^3/uL (0.0-0.2); EOSINOPHILS % (AUTO) 3.2 % (0.9-2.9); HEMATOCRIT 42.1 % (42.0-54.0); HEMOGLOBIN 14.3 g/dL (13.5-18.0); LYMPHOCYTES # (AUTO) 2.1 X10^3/uL (1.3-2.9); LYMPHOCYTES % (AUTO) 28.8 % (21.0-51.0); MEAN CORPUSCULAR HEMOGLOBIN 28.4 pg (27.0-34.0); MEAN CORPUSCULAR HGB CONC 33.9 g/dL (33.0-35.0); MEAN CORPUSCULAR VOLUME 83.8 fL (80.0-100.0); MEAN PLATELET VOLUME 8.8 fL (7.4-11.0); MONOCYTES # (AUTO) 0.6 x10^3/uL (0.3-0.8); MONOCYTES % (AUTO) 7.7 % (0.0-13.0); NEUTROPHILS # (AUTO) 4.3 x10^3/uL (2.2-4.8); NEUTROPHILS % (AUTO) 58.9 % (42.0-75.0); PLATELET COUNT 251 X10^3/uL (150.0-450.0); RED BLOOD COUNT 5.03 X10^6/uL (4.7-6.0); RED CELL DISTRIBUTION WIDTH 12.6 % (11.6-16.5); WHITE BLOOD COUNT 7.3 X10^3/uL (3.6-10.0)
[2024-09-26 05:59] LABS: CREATININE 0.94 mg/dL (0.70-1.30); VANCOMYCIN,TROUGH 16.7 ug/mL (15-20)
[2024-09-26 06:00] LABS: ALANINE AMINOTRANSFERASE 33 Units/L (12-78); ALBUMIN 2.9 g/dL (3.4-5.0); ALKALINE PHOSPHATASE 88 Units/L (46-116); ASPARTATE AMINO TRANSFERASE 17 Units/L (15-37); BLOOD UREA NITROGEN 8 mg/dL (7-18); CALCIUM 8.7 mg/dL (8.5-10.1); CARBON DIOXIDE 27.8 mmol/L (21-32); CHLORIDE 106 mmol/L (98-107); COR CA(FOR HYPOALB) 9.6 mg/dL (8.5-10.1); CREATININE 0.92 mg/dL (0.70-1.30); GLUCOSE 91 mg/dL (65-99); POTASSIUM 4.3 mmol/L (3.5-5.1); SODIUM 141 mmol/L (136-145); TOTAL PROTEIN 6.5 g/dL (6.4-8.2); eGFR NON BLACK RACES > 60 (>60)
--- NOTE | 2024-09-26 07:54 | DR.PROGNOT ---
HOSPITAL PROGRESS NOTE Progress Note for Day of: Progress Note Date: 09/26/24 Chief Complaint Chief Complaint: Feeling better today with less drainage. Packing is in place. Will change the dressing and remove the packing, will be seen in the office in 1 week. Past Medical Family Social History Past Med/Fam/Surg Hx: No changes since H&P Allergies: Allergies coconut Allergy (Verified 09/22/24 05:32) Vital Signs Vital Signs: Vital Signs Temperature 98.3 F Temperature 98.5 F Pulse Rate [Left Radial] 63 Pulse Rate [Left Radial] 60 Respiratory Rate 20 Respiratory Rate 18 Blood Pressure [Right Arm] 101/54 Blood Pressure [Right Arm] 106/58 O2 Sat by Pulse Oximetry 98 O2 Sat by Pulse Oximetry 98 Physical Exam Oriented: Normal Eyes: Normal Throat: Normal Respiratory: Normal Cardiovascular: Normal GI:Auscultation: Normal GI:Palpation: Normal GI: Tenderness: Normal Skin: Tender and Wound Musculoskeletal: Left (hand:swelling and redness improved, limited ROM, open w ound with drainage ) and Knee (closed wound, slight erythema noted ) Psychiatric: Normal Mood Description: Calm Affect: Normal Speech Pattern: Clear and Appropriate Laboratory and Diagnostics 09/26/24 05:14 09/26/24 05:14 Labs: 09/25/24 11:54 Hand - Left Wound Gram Stain - Final 09/22/24 06:10 Hand - Left Wound Gram Stain - Final 09/22/24 06:10 Hand - Left Wound Culture - Final Methicillin Resis Staph Aureus 09/22/24 08:31 Blood Blood Culture - Preliminary 09/22/24 08:25 Blood Blood Culture - Preliminary Laboratory WBC 7.3 X10^3/uL (3.6-10.0) 09/26/24 05:14 RBC 5.03 X10^6/uL (4.7-6.0) 09/26/24 05:14 Hgb 14.3 g/dL (13.5-18.0) 09/26/24 05:14 Hct 42.1 % (42.0-54.0) 09/26/24 05:14 MCV 83.8 fL (80.0-100.0) 09/26/24 05:14 MCH 28.4 pg (27.0-34.0) 09/26/24 05:14 MCHC 33.9 g/dL (33.0-35.0) 09/26/24 05:14 RDW 12.6 % (11.6-16.5) 09/26/24 05:14 Plt Count 251 X10^3/uL (150.0-450.0) 09/26/24 05:14 MPV 8.8 fL (7.4-11.0) 09/26/24 05:14 Neut % (Auto) 58.9 % (42.0-75.0) 09/26/24 05:14 Lymph % (Auto) 28.8 % (21.0-51.0) 09/26/24 05:14 [place] % (Auto) 7.7 % (0.0-13.0) 09/26/24 05:14 Eos % (Auto) 3.2 % (0.9-2.9) H 09/26/24 05:14 Baso % (Auto) 1.4 % (0.2-1.0) H 09/26/24 05:14 Neut # (Auto) 4.3 x10^3/uL (2.2-4.8) 09/26/24 05:14 Lymph # (Auto) 2.1 X10^3/uL (1.3-2.9) 09/26/24 05:14 [place] # (Auto) 0.6 x10^3/uL (0.3-0.8) 09/26/24 05:14 Eos # (Auto) 0.2 x10^3/uL (0.0-0.2) 09/26/24 05:14 Baso # (Auto) 0.1 X10^3/uL (0.0-0.1) 09/26/24 05:14 Absolute Nucleated RBC 0.1 /100WBC 09/26/24 05:14 Sodium 141 mmol/L (136-145) 09/26/24 05:14 Corrected Sodium TNP 09/26/24 05:14 Potassium 4.3 mmol/L (3.5-5.1) 09/26/24 05:14 Chloride 106 mmol/L (98-107) 09/26/24 05:14 Carbon Dioxide 27.8 mmol/L (21-32) 09/26/24 05:14 BUN 8 mg/dL (7-18) 09/26/24 05:14 Creatinine 0.92 mg/dL (0.70-1.30) 09/26/24 05:14 Creatinine 0.94 mg/dL (0.70-1.30) 09/26/24 05:14 Est GFR (MDRD) Af Amer > 60 (>60) 09/26/24 05:14 Est GFR (MDRD) Non-Af > 60 (>60) 09/26/24 05:14 Glucose 91 mg/dL (65-99) 09/26/24 05:14 Lactic Acid 0.8 mmol/L (0.4-2.0) 09/22/24 08:31 Calcium 8.7 mg/dL (8.5-10.1) 09/26/24 05:14 Corrected Calcium 9.6 mg/dL (8.5-10.1) 09/26/24 05:14 Magnesium 2.0 mg/dL (2.0-2.9) 09/25/24 05:18 Total Bilirubin 0.20 mg/dL (0.2-1.0) 09/26/24 05:14 AST 17 Units/L (15-37) 09/26/24 05:14 ALT 33 Units/L (12-78) 09/26/24 05:14 Alkaline Phosphatase 88 Units/L (46-116) 09/26/24 05:14 Total Protein 6.5 g/dL (6.4-8.2) 09/26/24 05:14 Albumin 2.9 g/dL (3.4-5.0) L 09/26/24 05:14 Globulin 3.6 g/dL (2.5-4.5) 09/26/24 05:14 Albumin/Globulin Ratio 0.8 Ratio (1.1-2.1) L 09/26/24 05:14 Vancomycin Trough 16.7 ug/mL (15-20) 09/26/24 05:14 Assessment and Plan 1: Skin abscess with cellulitis left hand positive for MRSA. Same local care with soaking with peroxide and saline and keep the left hand elevated in a sling. Same IV antibiotics pending final culture report. Patient could be discharged with the visiting nurse to change the dressing every day and will follow in 1 week. Same oral antibiotics.
[2024-09-26 08:26] VITALS: BP 131/77; PULSE 57; RESP 19; TEMP 97.9
== END 2024-09-26 11:20 | disposition home or self-care (01) ==
LOC: EDBD → MED/SURG 04:41 → ER 04:41 → MED/SURG 08:59
PROVIDERS: ADMIT Internal Medicine; ATTEND Internal Medicine
DX: W57.XXXA Bitten or stung by nonvenomous insect and other nonvenomous arthropods, initial encounter; Z29.89 Encounter for other specified prophylactic measures; Y92.9 Unspecified place or not applicable; E83.42 Hypomagnesemia; L03.114 Cellulitis of left upper limb; B95.62 Methicillin resistant Staphylococcus aureus infection as the cause of diseases classified elsewhere; Z16.12 Extended spectrum beta lactamase (ESBL) resistance; Z16.23 Resistance to quinolones and fluoroquinolones; S61.452A Open bite of left hand, initial encounter; Z16.29 Resistance to other single specified antibiotic; L02.512 Cutaneous abscess of left hand